=== PATIENT | female | born 1970 | race Two or more races ===

== ENCOUNTER 2016-09-23 07:51 | Day surgery (SDC) | payer MEDICAID ==
[2016-09-23] VITALS (13 sets, daily range): BP systolic 121–146; BP diastolic 56–75; PULSE 70–82; RESP 13–20; Ht 170.2 cm; Wt 99.0 kg
[~2016-09-23] VITALS: Ht 170.2 cm; Wt 99.0 kg
[2016-09-23] MEDS ORDERED: SOD CHLORIDE 0.9% 1,000 ML IV SCH (10:30)
[2016-09-23] MEDS ORDERED: CEFAZOLIN 2 GM/50 ML (PMX) 50 ML IVPB ONE (10:30)
[2016-09-23] MEDS ORDERED: FENTAnyl 50 MCG/ML VIAL ONE (12:48)
[2016-09-23] MEDS ORDERED: PROPOFOL 20 ML ONE (12:48)
[2016-09-23] MEDS ORDERED: MIDAZOLAM 1 MG/ML 2 ML INJ ONE (12:48)
[2016-09-23] MEDS ORDERED: LIDOCAINE 2% JELLY 5 ML ONE (12:49)
[2016-09-23] MEDS ORDERED: CEFAZOLIN 1 GM INJ ONE (12:49)
[2016-09-23] MEDS ORDERED: MEPERIDINE 25 MG INJ IV PRN (13:30)
[2016-09-23] MEDS ORDERED: FENTAnyl 50 MCG/ML VIAL IV PRN (13:30)
[2016-09-23] MEDS ORDERED: DIPHENHYDRAMINE 50 MG INJ IV PRN (13:30)
[2016-09-23] MEDS ORDERED: HYDROmorphONE (0.2 MG/ML) 10ML SYG IV PRN ×3 (13:30)
[2016-09-23] MEDS ORDERED: ONDANSETRON 4 MG INJ IV PRN (13:30)
--- NOTE | 2016-09-23 14:34 | OPR ---
DATE OF OPERATION: 09/23/2016 PREOPERATIVE DIAGNOSIS: Papilloma, left breast. POSTOPERATIVE DIAGNOSIS: Papilloma, left breast. OPERATION PERFORMED: Needle-directed left partial mastectomy. ANESTHESIA: General. ANESTHESIOLOGIST: Dr. Machado SURGEON: Fahad Duff MD INTERIOR PAINTER: None. INDICATIONS FOR PROCEDURE: The patient is a 46-year-old female who underwent screening mammography and ultrasonography and was found to have an intraductal lesion. Core biopsy was done and pathology findings were consistent with papilloma. The lesion was incompletely excised. Recommendation was m sage for complete surgical excision. The patient consented and was scheduled for surgery. DESCRIPTION OF PROCEDURE: On the morning of surgery the patient presented to [facility], where she underwent localization of the lesion performed by attending radiologis t, Dr. Milana Watson. Subsequently she was brought to the operating theater and placed under gene ral anesthesia. The left breast was prepped and draped in the usual sterile fashion. A periareolar incision was made at the 6 o'clock position through the 3 o'clock position to approximately the 1 o 'clock position. The subcutaneous tissue was dissected with cautery. The skin edges were then elev ated with skin hooks. Wide circumferential dissection of the tissue associated with the wire then t ook place. The specimen was elevated, transected, oriented, and sent for radiographic confirmation of capture. Capture was confirmed. The specimen was then sent for permanent pathologic analysis. The wound was irrigated. Minimal bleeding was controlled with cautery, and the skin was then reappr oximated with 4-0 Vicryl suture in subcuticular fashion and Dermabond was applied. The patient tole rated the procedure well. Estimated blood loss was 10 mL. There were no complications and the atiya ent was transported in stable condition to the recovery room, where a circumferential compression dr walker was applied. Dictated By: FAHAD DUFF MD TL/JAELYN Conf#: [id number] DID#: [id number]
== END 2016-09-23 15:20 | disposition home or self-care (01) ==
LOC: SDS 07:51
PROVIDERS: ATTEND Surgery Surgical Oncology
DX: N63 Unspecified lump in breast (principal); N60.12 Diffuse cystic mastopathy of left breast
CPT/HCPCS: 19301; 84703; 88307; J0690; J1170; J2175; J2250; J3010; Z7512; Z7610

== ENCOUNTER 2018-06-30 00:49 | Emergency (ER) | payer BC, MEDICAID ==
[~2018-06-30] VITALS: Ht 167.6 cm; Wt 104.0 kg
[2018-06-30 00:55] VITALS: Ht 167.6 cm; Wt 104.0 kg
[2018-06-30] MEDS ORDERED: BELLADONNA/PHENOBARBITAL TAB PO STA (02:44)
[2018-06-30] MEDS ORDERED: ONDANSETRON 4 MG INJ IV STA (02:44)
[2018-06-30] MEDS ORDERED: LIDOCAINE/MYLANTA 40 ML BTL PO STA (02:44)
[2018-06-30] MEDS ORDERED: morphine 4 MG/ML VIAL IV STA (02:44)
--- NOTE | 2018-06-30 02:48 | ERD ---
ER Documentation Chief Complaint Chief Complaint epigastric pain x 3 hours HPI This is a 48-year-old female who complains of epigastric and left upper quadrant pain onset 3 hours ago after eating a Snickers bar. Pain is a dull ache but strong and she has no shortness of breath pain in the shoulders arm jaw or back. She vomited once. Nonbloody nonbilious. She tried taking Tums and Pepto- Bismol but it did not help much. No prior history of gallstones that she knows of ROS All systems reviewed and are negative except as per history of present illness. Medications Home Meds No Active Prescriptions or Reported Meds Allergies Allergies: Coded Allergies: No Known Allergies (Verified Allergy, Unknown, 06/30/18) PMhx/Soc History of Surgery: No Anesthesia Reaction: No Hx Neurological Disorder: No Hx Respiratory Disorders: No Hx Cardiac Disorders: No Hx Psychiatric Problems: No Hx Miscellaneous Medical Probl: No Hx Alcohol Use: No Hx Substance Use: No Hx Tobacco Use: No FmHx Family History: No coronary disease Physical Exam Vitals Vital Signs Date Temp Pulse Resp B/P (MAP) Pulse Ox O2 O2 Flow FiO2 Time Delivery Rate 06/30/18 98.2 72 18 114/51 100 Room Air 02:45 (72) 06/30/18 98.2 82 18 137/74 100 00:55 (95) Physical Exam Const: Well-developed, well-nourished Head: Atraumatic, normocephalic Eyes: Normal Conjunctiva, PERRLA, EOMI, normal sclera, no nystagmus ENT: Normal External Ears, Nose and Mouth, moist mucus membranes. Neck: Full range of motion. No meningismus, no lymphadenopathy. Resp: Clear to auscultation bilaterally, no wheezing, rhonchi, rales Cardio: Regular rate and rhythm, no murmurs, S1 S2 present Abd: Soft, mild to moderate epigastric and left upper quadrant tenderness, non distended. Normal bowel sounds, no guarding or rebound, no pulsitile abdominal masses or bruits Skin: No petechiae or rashes, no ecchymosis , no maculopapular rash Back: No midline or flank tenderness Ext: No cyanosis, or edema, FROM x 4, normal inspection, neurovascularly intact x 4 Neur: Awake and alert, STR 5/5 x 4, sensation intact x 4, no focal findings, cerebellum intact Psych: Normal Mood and Affect Result Diagram: 06/30/18 0300 06/30/18 0300 Results 24 hrs Laboratory Tests Test 06/30/18 03:00 White Blood Count 14.0 10^3/ul Red Blood Count 4.18 10^6/ul Hemoglobin 13.3 g/dl Hematocrit 40.3 % Mean Corpuscular Volume 96.4 fl Mean Corpuscular Hemoglobin 31.8 pg Mean Corpuscular Hemoglobin Concent 33.0 g/dl Red Cell Distribution Width 11.5 % Platelet Count 274 10^3/UL Mean Platelet Volume 10.3 fl Immature Granulocytes % 0.300 % Neutrophils % 84.8 % Lymphocytes % 9.9 % Monocytes % 3.7 % Eosinophils % 0.9 % Basophils % 0.4 % Nucleated Red Blood Cells % 0.0 /100WBC Immature Granulocytes # 0.040 10^3/ul Neutrophils # 11.9 10^3/ul Lymphocytes # 1.4 10^3/ul Monocytes # 0.5 10^3/ul Eosinophils # 0.1 10^3/ul Basophils # 0.1 10^3/ul Nucleated Red Blood Cells # 0.0 10^3/ul Sodium Level 145 mmol/L Potassium Level 3.9 mmol/L Chloride Level 109 mmol/L Carbon Dioxide Level 27 mmol/L Anion Gap 9 Blood Urea Nitrogen 24 mg/dl Creatinine 0.60 mg/dl Est Glomerular Filtrat Rate mL/min > 60 mL/min Glucose Level 125 mg/dl Calcium Level 9.6 mg/dl Total Bilirubin 0.2 mg/dl Direct Bilirubin 0.00 mg/dl Indirect Bilirubin 0.2 mg/dl Aspartate Amino Transf (AST/SGOT) 39 IU/L Alanine Aminotransferase (ALT/SGPT) 30 IU/L Alkaline Phosphatase 100 IU/L Troponin I < 0.012 ng/ml Total Protein 8.5 g/dl Albumin 4.7 g/dl Globulin 3.80 g/dl Albumin/Globulin Ratio 1.23 Lipase 73 U/L Current Medications Medications Dose Sig/Fatimah Start Time Status Last (Trade) Ordered Route PRN Stop Time Admin Dose Reason Admin Morphine 4 mg ONCE STAT 06/30/18 DC 06/30/18 Sulfate IV 02:44 06/30/18 03:22 (morphine) 02:46 Ondansetron 4 mg ONCE STAT 06/30/18 DC 06/30/18 HCl (Zofran IV 02:44 06/30/18 03:22 Inj) 02:46 40 ml ONCE STAT 06/30/18 DC 06/30/18 Miscellaneous PO 02:44 06/30/18 03:22 Medication 02:46 (Gi Cocktail (2)) Belladonna/ 2 tab ONCE STAT 06/30/18 DC 06/30/18 Phenobarbital PO 02:44 06/30/18 03:22 () 02:46 Procedures/MDM Ordering MD: GUICHO LEWIS DO Location: E/R Room/Bed: PROCEDURE: US Abdomen limited. CLINICAL INDICATION: Abdominal pain TECHNIQUE: Nielsen scale and color Doppler imaging of the right upper quadrant COMPARISON: None FINDINGS: Note, exam somewhat technically limited including in relation to upper abdominal bowel gas. The liver appears mildly enlarged measuring 18.6 cm in length, with mildly increased echogenicity suggesting mild hepatic steatosis. No discrete hepatic lesion was demonstrated. There is appropriately directed flow within the main portal vein. The gallbladder is normal in appearance without evidence of stones, sludge, or wall thickening. Unknown sonographic Maguire's sign No intra or extrahepatic biliary dilatation is seen. The common bile duct measures 3.4 mm in maximal dimension. The pancreas is obscured by bowel gas. The right kidney measures 10.1 cm. No hydronephrosis or renal calculi are seen. No ascites is seen. IMPRESSION: Study limited including by bowel gas, without definite acute abnormality. Normal appearance of the gallbladder without gallstones. Mild hepatomegaly and hepatic steatosis. RPTAT: [facility] Physician Dayami Date Time Electronically viewed and signed by Physician Dayami on 06/30/2018 03:52 RF/ CC: GUICHO LEWIS DO [id number] EKG: Rate/Rhythm: Normal Sinus Rhythm,NL intervals QRS, ST, QT: NORMAL LA, QRS, QT] Impression: NORMAL EKG The patient's labs are unremarkable. She said after the GI cocktail her pain went away completely. She says she feels back to normal. No evidence of gallstones. She likely has an ulcer or gastritis or an upset stomach. Will use a brief trial of PPI or Zantac and reviewed home dietary care Patient feels much better at this time, and vital signs are normal, symptoms have improved. I did give strict instructions to return to the ED if symptoms continue or worsen, patient will otherwise follow-up with primary care physician. Patient understood instructions and agreed to plan. Disclaimer: Inadvertent spelling and grammatical errors are likely due to EHR/dictation software use and do not reflect on the overall quality of patient care. Also, please note that the electronic time recorded on this note does not necessarily reflect the actual time of the patient encounter. Departure Diagnosis: Primary Impression: Epigastric pain Condition: Stable GUICHO LEWIS DO Jun 30, 2018 02:48
[2018-06-30] MEDS ORDERED: OMEP40CA6 PO (04:32)
[2018-06-30 04:52] VITALS: BP 118/61; PULSE 64; RESP 18
== END 2018-06-30 04:54 | disposition home or self-care (01) ==
LOC: E/R 00:49
DX: R10.13 Epigastric pain (principal); R11.10 Vomiting, unspecified
CPT/HCPCS: 36415; 76705; 80053; 83690; 84484; 85025; 93005; 96374; 96375; 99285; J2270; J2405